=== PATIENT | male | born 1950 | race Caucasian/White ===

== ENCOUNTER 2017-04-29 05:37 | Observation (INO) | payer OTHER ==
--- NOTE | 2017-04-28 14:01 | GHP ---
[f rep st] PREOP HISTORY AND PHYSICAL DATE OF ADMISSION: 04/29/2017 ADMISSION DIAGNOSIS: BPH with urinary obstruction. HISTORY OF PRESENT ILLNESS: This is a 66-year-old gentleman who has had lower urinary tract symptoms. He had an AUA score of 28 in the past and he is not happy with his lower urinary tract symptoms, given a quality of life score of 4 on the AUA symptom sheet. He has had no previous treatments for his BPH. He has had a transrectal ultrasound of the prostate that revealed a large intravesical lobe of the prostate. It measured 69.4 g. He had a PSA density of 0.4. He had a cystoscopy that revealed a large intravesical lobe of the prostate. He had a urodynamics test that showed a maximum flow rate of 5.1 mL/ sec and the maximum detrusor pressure at maximum flow was 106 cm of water pressure. He had a residual urine of 116 mL at the time of his urodynamics. My interpretation was that he had an obstructed outlet, so at the present time, he is admitted for TUR of the prostate. Options and risks of the procedure had been discussed. Written and verbal consent was obtained. MEDICATIONS: Include aspirin, Cialis, glucosamine, multivitamins and vitamin C. ALLERGIES: None. FAMILY HISTORY: Esophageal cancer, pancreatic cancer, prostate cancer. SOCIAL HISTORY: Moderate alcohol consumption, former smoker. REVIEW OF SYSTEMS: Negative cardiac, respiratory, GI and endocrine. PHYSICAL EXAM: VITAL SIGNS: In the office, his blood pressure is 133/75, O2 saturation on room air was 95%. Heart rate 68 and regular, respirations 16. HEAD, EARS, EYES, NOSE, AND THROAT: Normal. CHEST: Clear. HEART: Regular rate and rhythm. ABDOMEN: Normal. No organomegaly, rebound, or guarding. LOWER EXTREMITIES: Normal. RECTAL: Prostate was greater than 50 g in size on rectal exam. PLAN: At the present time, he is admitted for a transurethral resection of the prostate. Written and verbal consent was obtained and questions have been answered. /[id number]/MODL MTDD
[2017-04-29] MEDS ORDERED: LIDOCAINE 1% 2 ML INJ ID PRN (05:50)
[2017-04-29] MEDS ORDERED: LR 1,000 ML IV ONE (05:50)
[2017-04-29] MEDS ORDERED: ceFAZolin 2 GM/DEXTROSE 100 ML IV ONE (06:56)
--- NOTE | 2017-04-29 06:56 | PDHPUP ---
History & Physical Update H&P update statement: This history and physical update is based on an assessment of the patient which was completed after admission or registration (within 24 hours), but prior to the surgery/procedure. H&P update: H&P reviewed & patient examined, no change in patient's condition since H&P completed
[2017-04-29] MEDS ORDERED: fentaNYL 100 MCG/2 ML INJ ONE (07:29)
[2017-04-29] MEDS ORDERED: MIDAZOLAM 2 MG/2 ML VIAL ONE (07:29)
[2017-04-29] MEDS ORDERED: PROPOFOL/EMULSION 500 MG/50 ML BOTTLE IV ONE (07:30)
[2017-04-29] MEDS ORDERED: LIDOCAINE 2% JELLY 20 ML (UROJECT) ONE (07:33)
[2017-04-29] MEDS ORDERED: DEXAMETHASONE 4 MG/ML VIAL IVP PRN (07:49)
[2017-04-29] MEDS ORDERED: LR 500 ML IV PRN (07:49)
[2017-04-29] MEDS ORDERED: METOCLOPRAMIDE 10 MG/2 ML VIAL IVP PRN (07:49)
[2017-04-29] MEDS ORDERED: fentaNYL 100 MCG/2 ML INJ IVP PRN (07:49)
[2017-04-29] MEDS ORDERED: ONDANSETRON 4 MG/2 ML VIAL IVP PRN ×2 (07:49→08:45)
[2017-04-29] MEDS ORDERED: NALOXONE HCL 0.4 MG/ML INJ IVP PRN (07:49)
[2017-04-29] MEDS ORDERED: PROMETHAZINE HCL 25 MG/ML INJ IVP PRN (07:49)
--- NOTE | 2017-04-29 07:49 | PDANEPAE ---
ANE Past Medical History - Cardiovascular History Hx Hypertension: No Hx Arrhythmias: No Hx Chest Pain: No Hx Coronary Artery / Peripheral Vascular Disease: No Hx CHF / Valvular Disease: No Hx Palpitations: No - Pulmonary History Hx COPD: No Hx Asthma/Reactive Airway Disease: No Hx Recent Upper Respiratory Infection: No Hx Oxygen in Use at Home: No Hx Sleep Apnea: No Sleep Apnea Screening Result - Last Documented: Negative - Neurologic History Hx Cerebrovascular Accident: No Hx Seizures: No Hx Dementia: No - Endocrine History Hx Diabetes: No - Renal History Hx Renal Disorders: Yes Renal History Comment: BPH - Liver History Hx Hepatic Disorders: No - Neurological & Psychiatric Hx Hx Neurological and Psychiatric Disorders: No - Cancer History Hx Cancer: No - Congenital Disorder History Hx Congenital Disorders: No - Other Health History Other Health History: DDD. ED - Chronic Pain History Chronic Pain: Yes (LOWER BACK) - Surgical History Prior Surgeries: REMVL HARDWARE RT KNEE 2016. RT KNEE ACL REPAIR. RT KNEE SCOPE. JENIFER ING HERNIA. COLONOSCOPY WITH POLYP REMVL X3 ANE Review of Systems - Exercise capacity METS (RN): 4 METS ANE Patient History - Allergies Allergies/Adverse Reactions: No Known Allergies Allergy (Unverified 04/15/17 10:38) - Home Medications Home Medications: Aspirin [Aspirin 81mg (*)] 81 mg PO HS 04/15/17 [Last Taken 04/28/17 21:00] Herbals/Supplements -Info Only 1 ea PO DAILY 04/15/17 [Last Taken 04/28/17] Multivitamins [Multivitamin (*)] 1 each PO DAILY 04/15/17 [Last Taken 04/27/17] Tadalafil [Cialis] 20 mg PO DAILY PRN 04/15/17 [Last Taken 02/25/17] Vitamin B Complex [B Complex] 1 each PO DAILY 04/15/17 [Last Taken 04/28/17] - NPO status NPO Since - Liquids (Date): 04/28/17 NPO Since - Liquids (Time): 04:30 NPO Since - Solids (Date): 04/28/17 NPO Since - Solids (Time): 20:00 - Smoking Hx Smoking Status: Former smoker ANE Labs/Vital Signs - Vital Signs Blood Pressure: 134/81 Heart Rate: 55 Respiratory Rate: 16 O2 Sat (%): 97 Height: 173.99 cm Weight: 72.575 kg ANE Physical Exam - Airway Neck exam: FROM Mallampati Score: Class 1 Mouth exam: normal dental/mouth exam - Pulmonary Pulmonary: no respiratory distress, no rales or rhonchi, clear to auscultation - Cardiovascular Cardiovascular: regular rate and rhythym, no murmur, rub, or gallop - ASA Status ASA Status: II ANE Anesthesia Plan Anesthesia Plan: GA w LMA
[2017-04-29] MEDS ORDERED: RANITIDINE 50 MG/2 ML VIAL ONE (07:53)
[2017-04-29] MEDS ORDERED: METOCLOPRAMIDE 10 MG/2 ML VIAL ONE (07:53)
[2017-04-29] MEDS ORDERED: ONDANSETRON 4 MG/2 ML VIAL ONE (07:53)
[2017-04-29] MEDS ORDERED: LIDOCAINE 2% 5 ML SDV ONE (07:53)
[2017-04-29] MEDS ORDERED: KETOROLAC 30 MG/1 ML SDV ONE (07:53)
[2017-04-29] MEDS ORDERED: TADALAFIL 20 MG PO PRN (08:42)
[2017-04-29] MEDS ORDERED: OPIUM/BELLADONNA ALKALO SUPP PR PRN (08:43)
[2017-04-29] MEDS ORDERED: HYDROCODONE/APAP 5/325 TAB PO PRN (08:43)
[2017-04-29] MEDS ORDERED: ONDANSETRON DISINTEGRATING 4 MG TAB PO PRN (08:45)
[2017-04-29] MEDS ORDERED: ACETAMINOPHEN 325 MG TAB PO PRN (08:45)
[2017-04-29] MEDS ORDERED: ZOLPIDEM TARTRATE 5 MG TAB PO PRN (08:45)
[2017-04-29] MEDS ORDERED: VITAMIN B COMPLEX 1 EA CAP/TAB PO SCH (09:00)
[2017-04-29] MEDS ORDERED: Herbals/Supplements -Info Only PO SCH (09:00)
--- NOTE | 2017-04-29 09:31 | GOP ---
[f rep st] OPERATIVE REPORT DATE OF OPERATION: 04/29/2017 SURGEON: Den Blackwell MD ANESTHESIA: General. ANESTHESIOLOGIST: Tawnya Miles MD. PREOPERATIVE DIAGNOSIS: 1. Benign prostatic hypertrophy. 2. Urinary retention. POSTOPERATIVE DIAGNOSIS: 1. Benign prostatic hypertrophy. 2. Urinary retention. PROCEDURE PERFORMED: Transurethral excision of the prostate. FINDINGS: DESCRIPTION OF PROCEDURE: After appropriate anesthesia, and prepped and draped in normal sterile fa shion, and appropriate time-out, his meatus was dilated to a 30-Azeri Matthew, and then the resec toscope passed under direct vision into the bladder. He had a large intravesical lobe of the prosta te and lateral lobar hypertrophy with prostatic polyps, and +3 trabeculation. At that point, the in travesical lobe was taken down with the bipolar instrumentation, and resected. The right lateral lo be from right portion of the posterior lobe resected. The left lateral lobe from left portion of th e posterior lobe resected. At the end of the procedure, bladder was Ellik'd free of all chips and c lots. Visualization revealed no residual chips or clots. Ureteral orifices were preserved. Permit Agent al sphincter approximated at the midline symmetrically, and verumontanum was intact. I did use the loop from during part of the resection and at the end of the procedure, used a button for hemostasis. Specimen was sent to Pathology. Uro-Jet placed in the urethra after, and the 22, thre e-way catheter passed in the bladder with the 60 cc balloon inflated, traction placed, and irrigated clear. He will be admitted for postoperative care. /[id number]/MODL
--- NOTE | 2017-04-29 10:37 | POSTANESTH ---
Post Anesthetic Evaluation Cardiovascular Status: Normal, Stable Respiratory Status: Normal, Stable Level of Consciousness/Mental Status: Mildly Sleepy, Arousable Pain Control: Adequate, Prn Tx Ordered Nausea/Vomiting Control: Adequate, Prn Tx Ordered Complications Possibly Related to Anesthesia: None Noted
[2017-04-29] MEDS: D5W LR 1,000 ML IV SCH ×2 (11:18→19:16)
[2017-04-29] MEDS: VITAMIN B COMPLEX 1 EA CAP/TAB PO SCH (12:00)
[2017-04-29] MEDS: MULTIVITAMINS 1 EACH TAB PO SCH (12:00)
[2017-04-29 12:14] VITALS: RESP 16
[2017-04-29] MEDS ORDERED: ASPIRIN 81 MG CHEWABLE TAB PO SCH (21:00)
[2017-04-30] MEDS: D5W LR 1,000 ML IV SCH (03:16)
[2017-04-30 04:29] VITALS: O2SAT 95
[2017-04-30] MEDS ORDERED: SENNOSIDES 1 TAB PO ONE (07:00)
[2017-04-30] MEDS: VITAMIN B COMPLEX 1 EA CAP/TAB PO SCH (08:07)
[2017-04-30] MEDS: MULTIVITAMINS 1 EACH TAB PO SCH (08:07)
[2017-04-30 12:12] VITALS: BP 123/68; PULSE 61; TEMP 98.2
--- NOTE | 2017-04-30 13:13 | GDS ---
[f rep st] DISCHARGE SUMMARY ADMISSION DIAGNOSES: Benign prostatic hypertrophy, urinary retention. DISCHARGE DIAGNOSES: Benign prostatic hypertrophy, urinary retention. PROCEDURES DURING THE HOSPITALIZATION: Transurethral excision of the prostate. HOSPITAL COURSE: The patient on admission had the above procedure performed. Pathology is pending. Catheter removed postop day 1. He is discharged home, to have followup with me in 3 weeks. /[id number]/MODL
== END 2017-04-30 13:20 | disposition home or self-care (01) ==
LOC: F1N 05:37
PROVIDERS: ADMIT Specialist; ATTEND Specialist
PROC: 0VB08ZX Excision of Prostate, Via Natural or Artificial Opening Endoscopic, Diagnostic (ICD-10-PCS; principal; 2017-04-29 07:15)
DX: N40.1 Benign prostatic hyperplasia with lower urinary tract symptoms (principal); R33.8 Other retention of urine; N41.1 Chronic prostatitis
CPT/HCPCS: 52601; 88305; J0690; J1885; J2250; J2405; J2704; J2765; J2780; J3010